=== PATIENT | male | born 1995 | race Caucasian/White ===

== ENCOUNTER 2017-09-10 15:37 | Emergency (ER) | payer SELFPAY ==
[~2017-09-10] VITALS: Ht 172.7 cm; Wt 63.6 kg
[2017-09-10 16:10] VITALS: Ht 172.7 cm; Wt 63.6 kg
[2017-09-10] MEDS ORDERED: TYLENOL W/CODEI1 TAB PO (20:20)
[2017-09-10] MEDS ORDERED: VIBRAMYCIN 100100 MG PO (20:20)
[2017-09-10 21:17] VITALS: BP 129/88
== END 2017-09-10 21:18 | disposition home or self-care (01) ==
LOC: D.ER 15:37
DX: L03.211 Cellulitis of face (principal); F17.200 Nicotine dependence, unspecified, uncomplicated